=== PATIENT | male | born 1970 | race Caucasian/White ===

== ENCOUNTER 2016-07-02 10:15 | Emergency (ER) | payer BC ==
[~2016-07-02] VITALS: Ht 177.8 cm; Wt 75.7 kg
[~2016-07-02 10:15] MED LIST: ATEN1TAB73 PO; B COTAB3 PO; FISH1000 PO; FLAX PO; GLUC500C56 PO; IBUP-232; TAB-TAB PO; VICOTAB4; VITA500T10 PO; [UNRECOGNIZED DRUG - CODE] PO
[2016-07-02 10:19] VITALS: BP 142/101; PULSE 109; RESP 18; TEMP 98.6; O2SAT 99
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
== END 2016-07-02 11:16 | disposition home or self-care (01) ==
LOC: PHEFT 10:15
DX: B34.9 Viral infection, unspecified (principal)
CPT/HCPCS: 99283

== ENCOUNTER 2017-06-25 18:47 | Emergency (ER) | payer BC ==
[~2017-06-25] VITALS: Ht 177.8 cm; Wt 80.0 kg
[~2017-06-25 18:47] MED LIST changes: -ATEN1TAB73 PO; -B COTAB3 PO; -FISH1000 PO; -FLAX PO; -GLUC500C56 PO; -TAB-TAB PO; -VICOTAB4; -VITA500T10 PO; -[UNRECOGNIZED DRUG - CODE] PO
[2017-06-25 19:36] VITALS: BP 107/58; PULSE 95; RESP 20; TEMP 100.1; O2SAT 99
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
[2017-06-25] MEDS ORDERED: ACETAMINOPHEN 325 MG TAB PO ONE (20:15)
--- NOTE | 2017-06-25 20:54 | PD ---
Physical Exam Date Seen by Provider: Jun 25, 2017 Time Seen by Provider: 20:53 Narrative GENERAL: Well-developed well-nourished male in no acute distress no respiratory distress Data Data Last Documented VS Vital Signs Date Time Temp Pulse Resp B/P (MAP) Pulse Ox O2 Delivery O2 Flow Rate FiO2 06/25/17 19:36 100.1 95 20 107/58 (74) 99 Orders Orders Influenzae A/B Antigen (06/25/17 20:09) Acetaminophen (Tylenol) (06/25/17 20:15) Oseltamivir (Tamiflu) (06/26/17 09:00) MDM Medical Record Reviewed: Yes Supervised Visit with KATHY: Yes Differential Diagnosis Viral syndrome influenza bronchitis pneumonia Narrative Course Specimen collected for influenza antigen; received dose of acetaminophen Influenza B antigen positive patient given first dose of Tamiflu and is stable for outpatient management Diagnosis Primary Impression: Influenza Referrals: Primary Care Physician call for appointment Patient Instructions: General Instructions Departure Forms: Tests/Procedures, Work Release Special Instructions: No work 4 days Additional Instruction: Increase fluid hydration Take acetaminophen/Tylenol every 4 hours for fever 100.4F or greater Take ibuprofen/Advil/Motrin 800 mg as often as every 8 hours as needed for fever 100.4F or greater or for pain associated with inflammation Complete course of antiviral Tamiflu no work 4 days Follow up with your primary care provider Return to the emergency for any concerns or change condition Med/Other Pt SpecificInfo: Prescription(s) given Scripts Oseltamivir (Tamiflu) 75 Mg Cap 75 MG PO BID for Mgmt Viral Infection for 5 Days, #10 CAP 0 Refills Prov: Shilpi Parker MD 06/25/17 Disposition: 01 DISCHARGE HOME Condition: Stable Shilpi Parker MD Jun 25, 2017 20:54
[2017-06-25] MEDS ORDERED: OSEL75 PO (21:44)
[2017-06-25] MEDS ORDERED: OSELTAMIVIR PHOSPHATE 75 MG CAP PO ONE (22:00)
== END 2017-06-25 22:20 | disposition home or self-care (01) ==
LOC: PHEFT 18:47
DX: J10.1 Influenza due to other identified influenza virus with other respiratory manifestations (principal)
CPT/HCPCS: 87804; 99283